=== PATIENT | male | born 1985 | race African-American/Black ===

== ENCOUNTER 2017-05-11 03:38 | Emergency (ER) | payer OTHER ==
[~2017-05-11] VITALS: Ht 193 cm; Wt 97.5 kg
[2017-05-11] MEDS ORDERED: NORCO 5-325 TA1 EACH PO (04:08)
== END 2017-05-11 04:25 | disposition home or self-care (01) ==
LOC: ER 03:38
DX: S00.532A Contusion of oral cavity, initial encounter (principal); F17.210 Nicotine dependence, cigarettes, uncomplicated; W22.8XXA Striking against or struck by other objects, initial encounter; Y93.89 Activity, other specified; Y92.89 Other specified places as the place of occurrence of the external cause; Y99.0 Civilian activity done for income or pay

== ENCOUNTER 2018-10-10 19:12 | Emergency (ER) | payer OTHER ==
[~2018-10-10] VITALS: Ht 193 cm; Wt 99.8 kg
[~2018-10-10 19:12] MED LIST: NORCO 5-325 TA1 EACH PO
[2018-10-10] MEDS ORDERED: REGLAN 10 MG TA10 MG PO (20:16)
[2018-10-10] MEDS ORDERED: AMOXICILLIN 50500 M1 PO (20:16)
[2018-10-10] MEDS ORDERED: NAPROSYN500 MG PO (20:16)
[2018-10-10 20:30] VITALS: BP 142/74
== END 2018-10-10 20:25 | disposition home or self-care (01) ==
LOC: ER 19:12
DX: F17.210 Nicotine dependence, cigarettes, uncomplicated (principal); G44.209 Tension-type headache, unspecified, not intractable; K05.00 Acute gingivitis, plaque induced

== ENCOUNTER 2020-01-24 14:21 | Emergency (ER) | payer OTHER ==
[~2020-01-24] VITALS: Ht 193 cm; Wt 99.8 kg
[~2020-01-24 14:21] MED LIST changes: +AMOXICILLIN 50500 M1 PO; +NAPROSYN500 MG PO; +REGLAN 10 MG TA10 MG PO
[2020-01-24] MEDS ORDERED: NAPROSYN500 MG PO (15:13)
[2020-01-24] MEDS ORDERED: NORCO 5-325 TA1 EAC2 PO (15:13)
[2020-01-24] MEDS ORDERED: AMOXICILLIN 50500 M1 PO (15:13)
[2020-01-24 15:19] VITALS: BP 123/90
== END 2020-01-24 17:18 | disposition home or self-care (01) ==
LOC: ER 14:21
DX: K08.89 Other specified disorders of teeth and supporting structures (principal); K12.1 Other forms of stomatitis; F17.210 Nicotine dependence, cigarettes, uncomplicated

== ENCOUNTER 2020-02-07 17:44 | Emergency (ER) | payer OTHER ==
[~2020-02-07] VITALS: Ht 193 cm; Wt 97.5 kg
[~2020-02-07 17:44] MED LIST changes: +NORCO 5-325 TA1 EAC2 PO
[2020-02-07 18:22] LABS: ABSOLUTE NEUTROPHILS 3.9 thou/uL (1.4-8.2); EOSINOPHILS 8.1 % (0.0-3.0); HEMATOCRIT 43.7 % (42.0-52.0); HEMOGLOBIN 14.5 gm/dL (14.0-18.0); MCH 31.6 pg (26.0-34.0); MCHC 33.3 g/dL (28.0-37.0); MONOCYTES 7.5 % (1.0-8.0); PLATELET COUNT 358 thou/uL (150-400); POLYS 47.4 % (36.0-66.0); RDW 13.3 % (10.5-14.5); WBC 8.3 thou/uL (4.0-11.0)
[2020-02-07 18:28] LABS: CALCIUM 8.3 mg/dL (8.5-10.1); POTASSIUM 4.1 mmol/L (3.5-5.1)
[2020-02-07] MEDS ORDERED: NORCO 7.5-3251 EACH PO (19:20)
[2020-02-07] MEDS ORDERED: NAPROSYN500 MG PO (19:20)
[2020-02-07] MEDS ORDERED: NORFLEX100 MG PO (19:20)
[2020-02-07] MEDS ORDERED: SENNA-DOCUSATE1 EAC1 PO (19:24)
[2020-02-07 20:04] VITALS: BP 121/78
== END 2020-02-07 20:05 | disposition home or self-care (01) ==
LOC: ER 17:44
PROVIDERS: Emergency Medicine
DX: M51.26 Other intervertebral disc displacement, lumbar region (principal); F17.210 Nicotine dependence, cigarettes, uncomplicated; X50.1XXA Overexertion from prolonged static or awkward postures, initial encounter; X50.0XXA Overexertion from strenuous movement or load, initial encounter; Y93.89 Activity, other specified; Y92.89 Other specified places as the place of occurrence of the external cause; Y99.8 Other external cause status

== ENCOUNTER 2020-11-20 20:17 | Emergency (ER) | payer OTHER ==
[~2020-11-20] VITALS: Ht 193 cm; Wt 99.8 kg
[~2020-11-20 20:17] MED LIST changes: +NORCO 7.5-3251 EACH PO; +NORFLEX100 MG PO; +SENNA-DOCUSATE1 EAC1 PO
[2020-11-20 20:31] VITALS: BP 144/81
[2020-11-20] MEDS ORDERED: AMOXICILLIN500 M1 PO ×2 (21:27→22:38)
[2020-11-20] MEDS ORDERED: HYDROCODON-ACE1 EAC7 PO ×2 (21:27→22:38)
== END 2020-11-20 21:59 | disposition home or self-care (01) ==
LOC: ER 20:17
DX: M27.69 Other endosseous dental implant failure (principal); F17.210 Nicotine dependence, cigarettes, uncomplicated